=== PATIENT | female | born 1990 | race African-American/Black ===

== ENCOUNTER 2023-11-07 13:54 | Emergency (ER) | payer SELFPAY ==
[~2023-11-07 13:54] MED LIST: COLA100C2 OR; PERC5TAB8 OR; PERC7.5T8 OR; PRENTAB8 PO; SM I100T OR
[2023-11-07 13:55] VITALS: BP 147/89; TEMP 98.1; O2SAT 95
== END 2023-11-07 13:59 | disposition left against medical advice (07) ==
LOC: M ED 13:54
DX: Z53.21 Procedure and treatment not carried out due to patient leaving prior to being seen by health care provider (principal)